=== PATIENT | male | born 1955 | race Caucasian/White ===

== ENCOUNTER 2016-03-28 10:42 | Emergency (ER) | payer MEDICAID ==
[~2016-03-28] VITALS: Ht 177.8 cm; Wt 70.0 kg
[2016-03-28 10:45] VITALS: BP 138/82; PULSE 86; RESP 17; TEMP 98.3; O2SAT 98
[2016-03-28 11:00] VITALS: BP 136/77; PULSE 110; RESP 16; O2SAT 98
[2016-03-28 11:42] LABS: BASOPHIL % 0.3 % (0.0-2.0); EOSINOPHIL % 0.3 % (0.0-4.0); HEMATOCRIT 47.2 % (39.0-51.0); HEMO FLAGS DIFF FINAL; LYMPH % 11.4 % (9.0-44.0); LYMPHOCYTE # 1.6 TH/MM3 (1.0-4.8); MEAN CELL VOLUME 92.4 FL (80.0-100.0); MEAN CORPUSCULAR HEMOGLOBIN 32.2 PG (27.0-34.0); MEAN CORPUSCULAR HGB CONC 34.8 % (32.0-36.0); MONO % 9.7 % (0.0-8.0); NEUT % 78.3 % (16.0-70.0); PLATELET COUNT 220 TH/MM3 (150-450); RED BLOOD COUNT 5.11 MIL/MM3 (4.50-5.90); RED CELL DISTRIBUTION WIDTH 12.9 % (11.6-17.2)
[2016-03-28 11:43] LABS: BACTERIA, URINE MANY /hpf; BLOOD, URINE TRACE (NEG); COMMENT (UR) CULTURE INDICATED; CULTURE IF INDICATED CULTURE INDICATED; GLUCOSE,URINE 150 mg/dL (NEG); KETONE, URINE NEG (NEG); NITRITE,URINE NEG (NEG); URINE COLOR YELLOW (YELLW/STRAW)
--- NOTE | 2016-03-28 11:45 | PD ---
HPI Chief Complaint: Fever Time Seen by Provider: 10:59 Travel History International Travel<30 days: No Contact w/Intl Traveler<30days: No Traveled to known affect area: No History of Present Illness HPI This is a 60-year-old male history of hepatitis C, right inguinal hernia repair 2 weeks ago, who presents today with complaints of fever 2 days. Patient reported his temperature was above 101. He states he took Tylenol and Motrin. This morning when he woke up, he took his temperature again and it was low- grade at 99.1. He was encouraged by his friends to come in and reevaluated. The patient does occasionally self catheter for a neurogenic bladder and states that his urine has been darker and cloudier than normal. He also reports it has a foul smell. He denies any drainage from his inguinal hernia site. But he does state that he is having some pain at the inferior inguinal area. There is no productive cough. There is no chills. There are no other symptoms at the time of my examination. PFSH Past Medical History Cerebrovascular Accident: Yes (2010) Genitourinary: Yes (SELF-CATHS) Hepatitis: Yes (C - BEING TREATED WITH HARVONI ) Medical other: Yes (NEUROPATHY ) Tetanus Vaccination: > 5 Years Influenza Vaccination: No Past Surgical History Other Surgery: Yes (INGUINAL HERNIA REPAIR, 3 COLON POLYPS REMOVED ) Social History Alcohol Use: No Tobacco Use: No Substance Use: No Allergies-Medications (Allergen,Severity, Reaction): Coded Allergies: Codeine (Verified Allergy, Intermediate, RASH, 03/28/16) Gabapentin (Verified Adverse Reaction, Intermediate, AGGRESSIVE/ANGRY, ) Reported Meds & Prescriptions Reported Meds & Active Scripts Active Levaquin (Levofloxacin) 750 Mg Tab 750 Mg PO DAILY Review of Systems General / Constitutional: Positive: Fever, No: Chills HENT: No: Headaches, Lightheadedness Cardiovascular: No: Chest Pain or Discomfort, Palpitations Respiratory: No: Cough, Shortness of Breath Gastrointestinal: Positive: Abdominal Pain (right inguinal discomfort at his hernia site. He states he's been walking more than normal and feels it pulling towards his groin area), No: Nausea, Vomiting, Diarrhea Genitourinary: Positive: Other (darker urine than normal. Foul smell to urine compared to baseline), No: Dysuria Musculoskeletal: Positive: Pain (right inguinal and inner thigh discomfort) Neurologic: Positive: Other (neurogenic bladder), No: Weakness, Dizziness Physical Exam Narrative GENERAL: Well-nourished, well-developed patient. SKIN: Warm and dry. HEAD: Normocephalic. EYES: No scleral icterus. No injection or drainage. NECK: Supple, trachea midline. CARDIOVASCULAR: Regular rate and rhythm without murmurs, gallops, or rubs. RESPIRATORY: Breath sounds equal bilaterally. No accessory muscle use. GASTROINTESTINAL: Abdomen soft, non-tender, nondistended. No rebound or guarding. Tenderness in the right inguinal area as below. MUSCULOSKELETAL: No cyanosis, or edema. BACK: Nontender without obvious deformity. No CVA tenderness. GENITOURINARY: Circumcised. Testes descended bilaterally without evidence of rotation. No lesions or erythema. No urethral discharge. On examination patient's right inguinal hernia scar, there is no drainage or erythema suggestive of infection. He does have a palpable fullness of the inferior portion of the scar. This could be consistent with a resolving hematoma or seroma. Data Data Last Documented VS Vital Signs Date Time Temp Pulse Resp B/P Pulse Ox O2 Delivery O2 Flow Rate FiO2 03/28/16 12:00 95 16 115/71 98 Room Air 03/28/16 10:45 98.3 Orders Complete Blood Count With Diff (03/28/16 11:17) Basic Metabolic Panel (Bmp) (03/28/16 11:17) Urinalysis - C+S If Indicated (03/28/16 11:17) Ecg Monitoring (03/28/16 11:17) Oximetry (03/28/16 11:17) Urine Culture (03/28/16 11:25) Levofloxacin 750 Mg Premix Inj (Levaquin (03/28/16 12:15) Labs Laboratory Tests Test 03/28/16 11:25 White Blood Count 14.0 TH/MM3 Red Blood Count 5.11 MIL/MM3 Hemoglobin 16.4 GM/DL Hematocrit 47.2 % Mean Corpuscular Volume 92.4 FL Mean Corpuscular Hemoglobin 32.2 PG Mean Corpuscular Hemoglobin 34.8 % Concent Red Cell Distribution Width 12.9 % Platelet Count 220 TH/MM3 Mean Platelet Volume 7.2 FL Neutrophils (%) (Auto) 78.3 % Lymphocytes (%) (Auto) 11.4 % Monocytes (%) (Auto) 9.7 % Eosinophils (%) (Auto) 0.3 % Basophils (%) (Auto) 0.3 % Neutrophils # (Auto) 11.0 TH/MM3 Lymphocytes # (Auto) 1.6 TH/MM3 Monocytes # (Auto) 1.4 TH/MM3 Eosinophils # (Auto) 0.0 TH/MM3 Basophils # (Auto) 0.0 TH/MM3 CBC Comment DIFF FINAL Differential Comment Urine Color YELLOW Urine Turbidity CLEAR Urine pH 6.0 Urine Specific [place] 1.008 Urine Protein NEG mg/dL Urine Glucose (UA) 150 mg/dL Urine Ketones NEG mg/dL Urine Occult Blood TRACE Urine Nitrite NEG Urine Bilirubin NEG Urine Urobilinogen LESS THAN 2.0 MG/DL Urine Leukocyte Esterase LARGE Urine RBC LESS THAN 1 /hpf Urine WBC 82 /hpf Urine Bacteria MANY /hpf Microscopic Urinalysis Comment CULTURE INDICATED Sodium Level 139 MEQ/L Potassium Level 3.9 MEQ/L Chloride Level 103 MEQ/L Carbon Dioxide Level 29.4 MEQ/L Anion Gap 7 MEQ/L Blood Urea Nitrogen 11 MG/DL Creatinine 1.02 MG/DL Estimat Glomerular Filtration 74 ML/MIN Rate Random Glucose 119 MG/DL Calcium Level 8.9 MG/DL MDM Medical Decision Making Medical Screen Exam Complete: Yes Emergency Medical Condition: Yes Differential Diagnosis Cystitis versus pyelonephritis versus infected right inguinal surgical site. Narrative Course 7-3-cuvo-old male who presents with complaints of fevers. Patient also complains of foul-smelling cloudy urine. The patient does self catheterize himself occasionally. He states he's had to do that over the last several days. He is here visiting from [place] for the race week. She states he 's been on his feet more than he normally is. He also had a inguinal hernia repair on the right 2 weeks ago. He reports some discomfort in that area. There is no evidence of infection at the surgical site. The discomfort he is likely feeling is from the prolonged standing from the surgical site. His urinalysis is grossly infected. His white count is elevated. Given the fact that he had a fever, this would be consistent with early pyelonephritis. The patient is nontoxic appearing. He's been given 750 mg dose of IV Levaquin. He' ll be given a prescription for Levaquin 750 by mouth 5 days. He is instructed to use Motrin and Tylenol as needed. He is also instructed to return if he develops any worsening symptoms i.e. worsening fevers, chills, abdominal pain, or any other reason that concerned him. Diagnosis Primary Impression: Pyelonephritis Additional Impression: recent inguinal hernia repair Additional Instructions: Return if feeling worse, continued fevers chills, or any other reason that concerned her. Wear your jock strap for support when standing. Drink plenty of fluids. Thank you for choosing [facility], we know you have a choice and healthcare. Med/Other Pt SpecificInfo: Prescription(s) given Scripts Levofloxacin (Levaquin)750 Mg Kit766 Mg PO DAILY #5 TAB Ref 0 Prov:Fredy Iniguez MD 03/28/16 Disposition: 01 DISCHARGE HOME Condition: Stable Fredy Iniguez MD Mar 28, 2016 11:45
[2016-03-28 11:55] LABS: BICARBONATE 29.4 MEQ/L (21.0-32.0); POTASSIUM 3.9 MEQ/L (3.5-5.1)
[2016-03-28 12:00] VITALS: BP 115/71; PULSE 95; RESP 16; O2SAT 98
[2016-03-28] MEDS ORDERED: LEVOFLOXACIN 750 MG PREMIX INJ 150 ML IV ONE (12:15)
[2016-03-28 13:00] VITALS: BP 123/74; PULSE 98; RESP 16; O2SAT 99
[2016-03-28] MEDS ORDERED: LEVA750T PO (13:03)
[2016-03-28 13:53] VITALS: BP 120/70
== END 2016-03-28 13:58 | disposition home or self-care (01) ==
LOC: NEPC 10:42
DX: N12 Tubulo-interstitial nephritis, not specified as acute or chronic (principal); B96.89 Other specified bacterial agents as the cause of diseases classified elsewhere; Z98.890 Other specified postprocedural states; Z87.448 Personal history of other diseases of urinary system; Z86.69 Personal history of other diseases of the nervous system and sense organs; Z86.73 Personal history of transient ischemic attack (TIA), and cerebral infarction without residual deficits; Z86.19 Personal history of other infectious and parasitic diseases
CPT/HCPCS: 80048; 81001; 85025; 87077; 87086; 87186; 96365; 99283; J1956